=== PATIENT | male | born 1980 | race African-American/Black ===

== ENCOUNTER 2022-03-28 02:56 | Emergency (ER) | payer OTHER ==
[2022-03-28 03:26] VITALS: BP 111/70; PULSE 60; TEMP 97.9; BMI 25.8
[2022-03-28] MEDS ORDERED: KETOROLAC TROMETHAMINE 30 MG/1 ML VIAL IM ONE (03:47)
[2022-03-28] MEDS ORDERED: LIDOCAINE 5% TOPICAL PATCH TP ONE (03:47)
[2022-03-28] MEDS ORDERED: ACETAMINOPHEN 325 MG TABLET (FP) PO ONE (03:47)
[2022-03-28] MEDS ORDERED: KETOROLAC TROMETHAMINE 30 MG/1 ML VIAL ONE (04:37)
[2022-03-28] MEDS ORDERED: ACETAMINOPHEN 325 MG TABLET (FP) ONE (04:37)
[2022-03-28] MEDS ORDERED: LIDOCAINE 5% TOPICAL PATCH ONE (04:37)
[2022-03-28] MEDS ORDERED: diazePAM 5 MG TABLET PO ONE (05:17)
[2022-03-28] MEDS ORDERED: diazePAM 5 MG TABLET ONE (05:22)
[2022-03-28] MEDS ORDERED: LIDOCAINE PATCH REMOVAL MC SCH (22:00)
== END 2022-03-28 05:27 | disposition home or self-care (01) ==
LOC: JER 02:56
PROC: 3E0233Z Introduction of Anti-inflammatory into Muscle, Percutaneous Approach (ICD-10-PCS; principal; 2022-03-28)
DX: M54.2 Cervicalgia (principal)
CPT/HCPCS: 96372; 99284-25